=== PATIENT | female | born 1945 | race Caucasian/White ===

== ENCOUNTER → 2020-05-14 08:37 | Outpatient (CLI) | payer BC, SELFPAY ==
[2020-05-14 09:25] LABS: Alanine Aminotransferase 19 IU/L (<35); Albumin 4.3 g/dL (3.5-5.0); Albumin Globulin Ratio 1.5 (1.0-2.8); Alkaline Phosphatase 57 U/L (38-126); Aspartate Aminotransferase 21 IU/L (14-36); BUN Creatinine Ratio 20.5 (6-22); Blood Urea Nitrogen 18 mg/dL (7-17); Calcium 9.9 mg/dL (8.4-10.2); Carbon Dioxide 32 mmol/L (22-32); Chloride 94 mmol/L (98-107); Cholesterol 150 mg/dL (140-199); Estimated Glomerular Filt Rate > 60.0 mL/min (>60); Globulin 2.8 g/dL (1.7-4.1); Glucose 115 mg/dL (80-110); HDL Cholesterol 56 mg/dL (40-60); HEMOLYSIS < 15 (0-50); LDL Cholesterol Calculated 52 mg/dL (<100); Sodium 133 mmol/L (137-145); Total Protein 7.1 g/dL (6.3-8.2); Triglycerides 209 mg/dL (35-150)
== END ==
PROVIDERS: PCP Registered Nurse; Referring Provider Registered Nurse; Visit Provider Registered Nurse
DX: E78.5 Hyperlipidemia, unspecified (principal); I10 Essential (primary) hypertension
CPT/HCPCS: 36415; 80053; 80061

== ENCOUNTER → 2020-10-07 16:38 | Outpatient (CLI) | payer BC, SELFPAY ==
[2020-10-07] MEDS: COVID-19 VACC #1, MRNA(MOD) 100 MCG/0.5 ML VIAL IM (16:44)
== END ==
PROVIDERS: PCP Registered Nurse; Visit Provider Internal Medicine
DX: Z23 Encounter for immunization (principal)
CPT/HCPCS: 0011A; 91301

== ENCOUNTER → 2020-11-04 09:47 | Outpatient (CLI) | payer BC, SELFPAY ==
[2020-11-04 12:03] LABS: Alanine Aminotransferase 20 IU/L (<35); Albumin 4.1 g/dL (3.5-5.0); Albumin Globulin Ratio 1.6 (1.0-2.8); Alkaline Phosphatase 62 U/L (38-126); Aspartate Aminotransferase 21 IU/L (14-36); Bilirubin Total 0.7 mg/dL (0.2-1.3); Blood Urea Nitrogen 17 mg/dL (7-17); Calcium 9.6 mg/dL (8.4-10.2); Carbon Dioxide 29 mmol/L (22-32); Chloride 94 mmol/L (98-107); Cholesterol 132 mg/dL (140-199); Estimated Glomerular Filt Rate > 60.0 mL/min (>60); Globulin 2.5 g/dL (1.7-4.1); Glucose 123 mg/dL (80-110); HDL Cholesterol 50 mg/dL (40-60); HEMOLYSIS < 15 (0-50); LDL Cholesterol Calculated 56 mg/dL (<100); Potassium 4.3 mmol/L (3.4-5.1); Sodium 130 mmol/L (137-145); Total Protein 6.6 g/dL (6.3-8.2); Triglycerides 128 mg/dL (35-150)
== END ==
PROVIDERS: PCP Registered Nurse; Referring Provider Registered Nurse; Visit Provider Registered Nurse
DX: E78.5 Hyperlipidemia, unspecified (principal); I10 Essential (primary) hypertension
CPT/HCPCS: 36415; 80053; 80061

== ENCOUNTER → 2020-11-04 12:12 | Outpatient (CLI) | payer BC, SELFPAY ==
[2020-11-04] MEDS: COVID-19 VACC #2, MRNA(MOD) 100 MCG/0.5 ML VIAL IM (12:21)
== END ==
PROVIDERS: PCP Registered Nurse; Visit Provider Internal Medicine
DX: Z23 Encounter for immunization (principal)
CPT/HCPCS: 0012A; 91301

== ENCOUNTER → 2020-12-20 07:56 | Outpatient (CLI) | payer BC, SELFPAY ==
--- NOTE | 2020-12-20 07:56 | DI.MG.S_ITS ---
BILATERAL DIGITAL SCREENING MAMMOGRAM 3D/2D WITH CAD: 12/20/2020 CLINICAL: Routine screening. Comparison is made to exams dated: 02/28/2018 mammogram and 02/11/2018 mammogram - outside location. There are scattered fibroglandular elements in both breasts. Current study was also evaluated with a Computer Aided Detection (CAD) system. No significant masses, calcifications, or other findings are seen in either breast. There has been no significant interval change. IMPRESSION: NEGATIVE There is no mammographic evidence of malignancy. A 1 year screening mammogram is recommended. This exam was interpreted at Station ID: [id number]. NOTE: For mammograms, a report in lay terms will be sent to the patient. Approximately 15% of breast malignancies will not be visualized mammographically. In the management of a palpable breast mass, a negative mammogram must not discourage biopsy of a clinically suspicious lesion. Electronically Signed By: Nas noble/tenzin:12/20/2020 09:41:02 letter sent: Normal Exam ACR BI-RADS Category 1: Negative [id number]
== END ==
PROVIDERS: PCP Registered Nurse; Referring Provider Registered Nurse; Visit Provider Registered Nurse
DX: Z12.31 Encounter for screening mammogram for malignant neoplasm of breast (principal)
CPT/HCPCS: 77063; 77067

== ENCOUNTER → 2021-12-05 09:18 | Outpatient (CLI) | payer BC, SELFPAY ==
[2021-12-05 10:47] LABS: Add Manual Diff / Slide Review NO; Basophils Absolute Auto 100 /uL (0-100); Basophils Percent Auto 0.9 % (0-2); Eosinophils Absolute Auto 100 /uL (0-450); Eosinophils Percent Auto 1.5 % (2-4); Hematocrit 43.2 % (36-46); Hemoglobin 15.2 g/dL (12.0-16.0); Lymphocytes Absolute Auto 1000 /uL (1100-4500); Lymphocytes Percent Auto 16.7 % (25-40); Mean Corpuscular HGB Conc 35.2 % (30-36); Mean Corpuscular Hemoglobin 31.5 PG (26-34); Mean Corpuscular Volume 89.4 fL (80-100); Monocytes Absolute Auto 600 /uL (0-900); Monocytes Percent Auto 9.8 % (3-14); Neutrophils Absolute Auto 4200 /uL (1500-7000); Neutrophils Percent Auto 71.1 % (50-75); Platelet Count 303 X10^3/uL (150-400); Red Blood Cell Count 4.83 X10^6/uL (4.0-5.2); Red Cell Distribution Width 13.6 % (11.6-14.8); White Blood Cell Count 5.9 X10^3/uL (4.5-11.0)
[2021-12-05 11:08] LABS: Alanine Aminotransferase 21 IU/L (<35); Albumin 4.5 g/dL (3.5-5.0); Albumin Globulin Ratio 1.4 (1.0-2.8); Alkaline Phosphatase 72 U/L (38-126); Aspartate Aminotransferase 26 IU/L (14-36); BUN Creatinine Ratio 18.9 (6-22); Bilirubin Total 0.8 mg/dL (0.2-1.3); Blood Urea Nitrogen 17 mg/dL (7-17); Calcium 9.5 mg/dL (8.4-10.2); Carbon Dioxide 28 mmol/L (22-32); Chloride 95 mmol/L (98-107); Cholesterol 161 mg/dL (140-199); Estimated Glomerular Filt Rate > 60.0 mL/min (>60); Globulin 3.2 g/dL (1.7-4.1); Glucose 142 mg/dL (80-110); HDL Cholesterol 55 mg/dL (40-60); HEMOLYSIS < 15 (0-50); LDL Cholesterol Calculated 71 mg/dL (<100); Potassium 3.8 mmol/L (3.4-5.1); Sodium 132 mmol/L (137-145); Total Protein 7.7 g/dL (6.3-8.2); Triglycerides 174 mg/dL (35-150)
[2021-12-05 12:54] LABS: Creatinine Urine Random 194.5 mg/dL
[2021-12-05 12:57] LABS: Microalbumi Creatinin Ratio Ur 33.9 ug/mg CR (<30); Microalbumin Urine Random 6.6 mg/dL (0-1.6)
== END ==
PROVIDERS: PCP Family Medicine; Referring Provider Family Medicine; Visit Provider Family Medicine
DX: E78.5 Hyperlipidemia, unspecified (principal); I10 Essential (primary) hypertension
CPT/HCPCS: 36415; 80053; 80061; 82043; 82570; 85025

== ENCOUNTER → 2023-01-30 09:02 | Outpatient (CLI) | payer BC, SELFPAY ==
[2023-01-30 10:30] LABS: Alanine Aminotransferase 28 IU/L (<35); Albumin 4.4 g/dL (3.5-5.0); Albumin Globulin Ratio 1.5 (1.0-2.8); Alkaline Phosphatase 85 U/L (38-126); Aspartate Aminotransferase 24 IU/L (14-36); BUN Creatinine Ratio 19.2 (6-22); Bilirubin Total 0.9 mg/dL (0.2-1.3); Blood Urea Nitrogen 14 mg/dL (7-17); Calcium 9.8 mg/dL (8.4-10.2); Carbon Dioxide 31 mmol/L (22-32); Chloride 92 mmol/L (98-107); Cholesterol 169 mg/dL (140-199); Estimated Glomerular Filt Rate > 60 mL/min (>60); Glucose 124 mg/dL (80-110); HDL Cholesterol 62 mg/dL (40-60); HEMOLYSIS < 15 (0-50); LDL Cholesterol Calculated 65 mg/dL (<100); Potassium 4.3 mmol/L (3.4-5.1); Sodium 132 mmol/L (137-145); Total Protein 7.4 g/dL (6.3-8.2); Triglycerides 208 mg/dL (35-150)
[2023-01-30 12:26] LABS: Creatinine Urine Random 170.5 mg/dL
[2023-01-30 12:29] LABS: Microalbumi Creatinin Ratio Ur 55.7 ug/mg CR (<30); Microalbumin Urine Random 9.5 mg/dL (0-1.6)
[2023-01-31 02:38] LABS: Labcorp Hemoglobin (Hb) A1c 6.1 % (4.8-5.6)
== END ==
PROVIDERS: PCP Family Medicine; Referring Provider Family Medicine; Visit Provider Family Medicine
DX: I10 Essential (primary) hypertension (principal); R73.01 Impaired fasting glucose
CPT/HCPCS: 36415; 80053; 80061; 82043; 82570; 83036

== ENCOUNTER → 2023-05-30 09:27 | Outpatient (CLI) | payer BC, SELFPAY ==
[2023-05-30 11:32] LABS: Blood Urea Nitrogen 24 mg/dL (7-17); Calcium 9.9 mg/dL (8.4-10.2); Carbon Dioxide 30 mmol/L (22-32); Chloride 95 mmol/L (98-107); Estimated Glomerular Filt Rate 58 mL/min (>60); Glucose 99 mg/dL (80-110); HEMOLYSIS < 15 (0-50); Sodium 136 mmol/L (137-145)
== END ==
PROVIDERS: PCP Family Medicine; Referring Provider Family Medicine; Visit Provider Family Medicine
DX: I10 Essential (primary) hypertension (principal); R73.01 Impaired fasting glucose
CPT/HCPCS: 36415; 80048

== ENCOUNTER → 2024-03-04 13:51 | Outpatient (CLI) | payer BC, SELFPAY ==
--- NOTE | 2024-03-04 15:08 | DI.RAD.S_ITS ---
PROCEDURE: XR CHEST 2V INDICATIONS: SOB x 2 mos getting worse TECHNIQUE: 2 views of the chest were acquired. COMPARISON: None. FINDINGS: Surgical changes and devices: None. Lungs and pleura: Lungs are clear. No pleural effusions or pneumothorax. Mediastinum: Mediastinal contours are normal. Heart size is normal. Bones and chest wall: No suspicious bony abnormalities. Soft tissues appear unremarkable. IMPRESSION: No acute pulmonary process. Dictated by: Jodie Jim M.D. on 03/04/2024 at 16:08 Approved by: Jodie Jim M.D. on 03/04/2024 at 16:08
[2024-03-04 15:23] LABS: Add Manual Diff / Slide Review NO; Basophils Absolute Auto 0 /uL (0-100); Basophils Percent Auto 0.4 % (0-2); Eosinophils Absolute Auto 100 /uL (0-450); Eosinophils Percent Auto 1.6 % (2-4); Lymphocytes Absolute Auto 600 /uL (1100-4500); Lymphocytes Percent Auto 8.6 % (25-40); Mean Corpuscular HGB Conc 34.9 % (30-36); Mean Corpuscular Hemoglobin 30.4 PG (26-34); Mean Corpuscular Volume 87.1 fL (80-100); Monocytes Absolute Auto 900 /uL (0-900); Monocytes Percent Auto 13.1 % (3-14); Neutrophils Absolute Auto 5100 /uL (1500-7000); Neutrophils Percent Auto 76.3 % (50-75); Platelet Count 392 X10^3/uL (150-400); Red Blood Cell Count 4.94 X10^6/uL (4.0-5.2); Red Cell Distribution Width 14.6 % (11.6-14.8); White Blood Cell Count 6.7 X10^3/uL (4.5-11.0)
[2024-03-04 15:35] LABS: D Dimer 270 ng/ml (<500)
[2024-03-04 15:42] LABS: Alanine Aminotransferase 18 IU/L (<35); Albumin 4.4 g/dL (3.5-5.0); Albumin Globulin Ratio 1.3 (1.0-2.8); Alkaline Phosphatase 70 U/L (38-126); Aspartate Aminotransferase 22 IU/L (14-36); Bilirubin Total 0.8 mg/dL (0.2-1.3); Blood Urea Nitrogen 19 mg/dL (7-17); Calcium 9.8 mg/dL (8.4-10.2); Carbon Dioxide 36 mmol/L (22-32); Chloride 78 mmol/L (98-107); Estimated Glomerular Filt Rate > 60 mL/min (>60); Globulin 3.3 g/dL (1.7-4.1); Glucose 121 mg/dL (80-110); HEMOLYSIS < 15 (0-50); Potassium 4.6 mmol/L (3.4-5.1); Sodium 124 mmol/L (137-145); Total Protein 7.7 g/dL (6.3-8.2)
[2024-03-04 16:11] LABS: TSH w/ Reflex to FT4 1.14 uIU/mL (0.47-4.68)
[2024-03-05 10:50] LABS: NT-proBNP (BNP-Adult 18+) 2770 pg/mL (<450)
== END ==
PROVIDERS: PCP Family Medicine; Referring Provider Physician Assistant; Visit Provider Physician Assistant
DX: R06.02 Shortness of breath (principal)
CPT/HCPCS: 36415; 71046; 80053; 83880; 84443; 85025; 85379

== ENCOUNTER → 2024-03-11 07:08 | Outpatient (CLI) | payer BC, SELFPAY ==
--- NOTE | 2024-03-11 07:12 | DI.US.S_ITS ---
PROCEDURE: US ABDOMEN LIMITED INDICATIONS: umbilical mass x 16 yrs, getting bigger TECHNIQUE: Real-time focused scanning was performed of the abdomen, with image documentation. COMPARISON: None. FINDINGS: Partially reducible supraumbilical hernia containing fat with wall defect measuring 3.1 centimeters. IMPRESSION: Partial reducible fat containing supraumbilical hernia. Dictated by: Pola Lopez M.D. on 03/11/2024 at 8:36 Approved by: Pola Lopez M.D. on 03/11/2024 at 8:37
--- NOTE | 2024-03-11 07:12 | DI.CT.S_ITS ---
PROCEDURE: CT LUNG LOW DOSE SCREENING INDICATIONS: 60 yr smoking hx, SOB TECHNIQUE: Noncontrast 2.0-2.5 mm thick sections acquired from the pulmonary apices to the posterior costophrenic angles. 7 mm thick axial MIP, and 5 mm coronal and sagittal reformats were then acquired. For radiation dose reduction, the following was used: automated exposure control, adjustment of mA and/or kV according to patient size. COMPARISON: None. FINDINGS: Image quality: Diagnostic. Lower Neck: No enlarged lymph nodes. Thyroid: No thyroid nodules which require sonographic follow up, per consensus guidelines. Axillae: No enlarged lymph nodes. Chest Wall: Unremarkable. Bones: Unremarkable. Lungs and Pleura: No pneumothorax or pleural effusions. No consolidation or suspicious nodules. Moderate centrilobular emphysema. Heart: Heart size is normal. Advanced coronary artery calcifications. No pericardial effusion. Thoracic Vessels: 4.6 cm ascending aortic aneurysm. Mediastinum and Riya: No enlarged lymph nodes. Esophagus: No wall thickening. No hiatal hernia. Upper Abdomen: Ventral hernia containing colon, incompletely imaged. The actual abdominal wall defect is not imaged. IMPRESSION: Moderate centrilobular emphysema. No pulmonary nodules. Advanced coronary atherosclerotic disease. 4.5 cm ascending aortic aneurysm. No suspicious pulmonary nodules. LUNG-RADS 1; continued annual screening, if eligible. Clinically Significant Non-pulmonary Findings: 4.5 cm ascending aortic aneurysm, advanced coronary artery calcifications. Dictated by: Chico Lizarraga M.D. on 03/11/2024 at 20:34 Approved by: Chico Lizarraga M.D. on 03/11/2024 at 20:40
[2024-03-11 09:10] LABS: BUN Creatinine Ratio 24.5 (6-22); Blood Urea Nitrogen 27 mg/dL (7-17); Calcium 10.1 mg/dL (8.4-10.2); Carbon Dioxide 35 mmol/L (22-32); Chloride 93 mmol/L (98-107); Estimated Glomerular Filt Rate 52 mL/min (>60); Glucose 122 mg/dL (80-110); HEMOLYSIS < 15 (0-50); Potassium 4.9 mmol/L (3.4-5.1); Sodium 137 mmol/L (137-145)
== END ==
PROVIDERS: PCP Family Medicine; Referring Provider Physician Assistant; Visit Provider Physician Assistant
DX: I71.21 Aneurysm of the ascending aorta, without rupture (principal); J43.2 Centrilobular emphysema; I25.10 Atherosclerotic heart disease of native coronary artery without angina pectoris; R06.02 Shortness of breath; Z12.2 Encounter for screening for malignant neoplasm of respiratory organs; R19.00 Intra-abdominal and pelvic swelling, mass and lump, unspecified site; E87.1 Hypo-osmolality and hyponatremia; Z87.891 Personal history of nicotine dependence
CPT/HCPCS: 36415; 71271; 76705; 80048

== ENCOUNTER → 2024-03-18 15:50 | Outpatient (CLI) | payer BC, SELFPAY | PROVIDERS: PCP Family Medicine; Referring Provider Family Medicine; Visit Provider Family Medicine | DX: J43.8 Other emphysema (principal); Z87.891 Personal history of nicotine dependence; R94.2 Abnormal results of pulmonary function studies | CPT/HCPCS: 94060 ==

== ENCOUNTER → 2024-03-26 07:55 | Outpatient (CLI) | payer BC, SELFPAY ==
--- NOTE | 2024-03-26 09:26 | DI.CT.S_ITS ---
PROCEDURE: CT ABDOMEN PELVIS W CON INDICATIONS: possible hernia TECHNIQUE: After the administration of intravenous contrast, axial sections acquired from the lung bases to the pubic symphysis. Coronal and sagittal reformats were performed. For radiation dose reduction, the following was used: automated exposure control, adjustment of mA and/or kV according to patient size. COMPARISON: None. FINDINGS: Image quality: Diagnostic. Lower Chest: No significant findings. ABDOMEN: Liver: No solid mass. Gallbladder: Gallbladder is unremarkable. Biliary ducts: No biliary dilation. Pancreas: No ductal dilation. Spleen: Size is within normal limits. Adrenal Glands: Right adrenal is normal. Nodule in the left adrenal with low Hounsfield units consistent with adenoma.. Kidneys and Ureters: No hydronephrosis. No solid mass. Densities too small to characterize are present bilaterally but statistically would represent cysts. Nonobstructing calculus in the right renal collecting system. Ureters are unremarkable.. Stomach and Bowel: Normal colonic caliber, without significant wall thickening. Diverticular seen in the sigmoid without evidence of diverticulitis. The transverse colon is present. No bowel obstruction. No evidence of incarceration. Peritoneum: No free air. Ventral Wall: There is moderate size ventral hernia with a 5 cm defect in the abdominal wall. Small fat filled umbilical hernia is noted. Abdominal Nodes: No retroperitoneal or mesenteric adenopathy by size criteria. Vessels: Extensive calcification in the abdominal aorta. The infrarenal aorta is ectatic measuring 3 cm in diameter.. PELVIS: Pelvic Organs: Uterus is absent, likely from hysterectomy. Bladder: No bladder wall thickening, accounting for underdistention. Pelvic Nodes: No enlarged lymph nodes. Miscellaneous: No inguinal hernias are seen. Bones: Advanced arthritic changes are present in the lumbar spine. There is anterolisthesis L4 on L5. IMPRESSION: Ventral hernia with a loop of transverse colon present. No bowel obstruction. Nonobstructing right renal calculus. Left adrenal nodule, likely adenoma. Dictated by: Greg Cabrera M.D. on 03/26/2024 at 17:37 Approved by: Greg Cabrera M.D. on 03/26/2024 at 17:55
== END ==
PROVIDERS: PCP Family Medicine; Referring Provider Surgery; Visit Provider Surgery
DX: K43.9 Ventral hernia without obstruction or gangrene (principal); K42.9 Umbilical hernia without obstruction or gangrene; N20.0 Calculus of kidney; E27.9 Disorder of adrenal gland, unspecified
CPT/HCPCS: 74177; Q9967

== ENCOUNTER → 2024-05-28 10:09 | Outpatient (CLI) | payer BC, SELFPAY ==
--- NOTE | 2024-05-28 10:10 | DI.NM.S_ITS ---
PROCEDURE: NM JAYCE PERF SPECT R&S PHARM Rest and pharmacological stress myocardial perfusion SPECT with gated imaging and ejection fraction RADIOPHARMACEUTICAL: 12.9 mCi Tc-99m tetrafosmin IV at rest and 26.3 mCi Tc-99m tetrafosmin IV at peak effect of pharmacological stress. [id number] was performed. INDICATIONS: Pararenal abdominal aortic aneurysm/abnormal ekg TECHNIQUE: Radiopharmaceutical was injected at peak stress test, and also at rest. SPECT images were obtained. SPECT myocardial perfusion images were displayed in short axis, horizontal long axis, and vertical long axis views. Gated images were reviewed using [employer] software. COMPARISON: None. CARDIAC STRESS: A pharmacologic stress test was performed under the supervision of an attending staff, using an infusion of 0.4 mg IV. Hemodynamic data: There is normal blood pressure and heart rate response to pharmacologic stress. Symptoms: The patient denied anginal chest pain. EKG: No diagnostic changes of ischemia; no ectopy. FINDINGS: Raw data: There is good myocardial uptake of radiotracer. No significant motion artifacts. Ucnq-xm-ykioy ratio is 0.3 (normal is less than 0.38 for tetrafosmin tracer). Left ventricle function: Gated images demonstrate normal left ventricular wall thickening. No segmental wall motion abnormalities. No transient ischemic dilation; TID is 0.95 (normal less than 1.3). Left ventricle resting end diastolic volume is 112 mL. Left ventricle stress ejection fraction is >75%; normal range is above 45%. Myocardial perfusion: There is a small size, mild intensity fixed distal anteroseptal wall defect. No reversible perfusion defects. IMPRESSION: Low risk study for ischemia as there are no reversible perfusion defects. The small size, mild intensity fixed distal anteroseptal wall defect occurs in the setting of breast attenuation, lack of prone images and normal wall motion. This is likely most consistent with attenuation artifact however small subendocardial scar cannot be ruled out. Normal LV size with hyperdynamic function. Dictated by: Monse Dinero D.O. on 05/28/2024 at 16:37 Approved by: Monse Dinero D.O. on 05/28/2024 at 16:40
== END ==
PROVIDERS: PCP Family Medicine; Referring Provider Internal Medicine Cardiovascular Disease; Visit Provider Internal Medicine Cardiovascular Disease
DX: I71.41 Pararenal abdominal aortic aneurysm, without rupture (principal); R94.31 Abnormal electrocardiogram [ECG] [EKG]
CPT/HCPCS: 78452; 93017; A9502; J2785

== ENCOUNTER 2024-06-24 08:11 | Emergency (ER) | payer BC, SELFPAY ==
[2024-06-24 08:20] VITALS: BP 173/78; PULSE 68; RESP 16; TEMP 36.2; O2SAT 98; BMI 34.0
--- NOTE | 2024-06-24 08:21 | ED.BACK ---
HPI - Back Pain/Injury General Chief Complaint: Urogenital-Female Stated Complaint: Pain in lower right back to front Time Seen by Provider: 06/24/24 08:21 History of Present Illness HPI Narrative: Patient is a 79-year-old female with a history of stable ascending aortic aneurysm without rupture, COPD not requiring supplemental oxygen at baseline, CHF, hyperlipidemia, hypertension presents to the emergency department for right-sided flank pain, has been ongoing and persistent for approximately 1 week, states that movement does make it worse, denies any bowel or urinary symptoms. States that she is due for ventral hernia repair in July 11 just got cardiac clearance. Denies any issues with this. She denies any numbness weakness tingling down bilateral lower extremities, is able to stand bear weight at her baseline with a walker. Denies any saddle paresthesias denies any bowel or urinary incontinence or retention. Related Data Previous Rx's Medication Instructions Recorded chlorthalidone 25 mg tablet 25 mg PO DAILY blood pressure #90 09/17/23 tabs losartan 100 mg tablet 100 mg PO DAILY blood pressure #90 09/17/23 tabs amlodipine 10 mg tablet 10 mg PO DAILY #90 tabs 03/21/24 atenolol 100 mg tablet 100 mg PO DAILY #90 tabs 03/21/24 atorvastatin 10 mg tablet 10 mg PO DAILY #90 tabs 03/21/24 fluticasone 250 mcg-salmeterol 50 1 inh inhalation BID #60 ea 06/10/24 mcg/dose blistr powdr for inhalation (Advair Diskus) baclofen 10 mg tablet 10 mg PO BEDTIME 7 days #7 tabs 06/24/24 naproxen 500 mg tablet (Naprosyn) 500 mg PO BID PRN pain 7 days #14 06/24/24 tabs Allergies Allergy/AdvReac Type Severity Reaction Status Date / Time lisinopril Allergy Verified 04/02/24 15:03 Review of Systems Review of Systems Narrative: General: Denies fever, chills, weight loss HEENT: Denies headache, eye drainage, eye irritation, head trauma, sore throat, voice change Cardiovascular: Denies any chest pain, palpitations, shortness of breath, tachycardia Respiratory: Denies any shortness of breath, cough, wheeze, stridor GI/: Positive right-sided flank pain, Denies any abdominal pain, nausea, vomiting, diarrhea, bright red blood per rectum, melanotic stools, urinary frequency, urinary retention, dysuria, hematuria MSK: Denies any joint pain, muscle pains, swelling Skin: Denies any rashes, lesions, discoloration Neuro: Denies any headache, lightheadedness, dizziness, fainting, weakness Psych: Denies SI/HI Patient History Medical History (Updated 06/24/24 @ 10:19 by Dario Lopez DO) Ventral hernia Emphysema lung Aortic aneurysm Tobacco dependence IFG (impaired fasting glucose) Uterine cancer (~2003) Social History marital status: unknown details: 12/05/2021 Employed by [employer] works with [employer] household members: none lives independently: Yes occupational status: employed Smoking Status: Former smoker (Quit January 2023. 58 years, 1ppd) quit status: quit date established (quit January 2023) alcohol intake: current substance use type: does not use Smoking Status: Former smoker (Quit January 2023. 58 years, 1ppd) Exam Narrative Exam Narrative: General: Cooperative, comfortable, well-developed, not in acute distress HEENT: Normocephalic, atraumatic, PERRLA, normal sclera, eyelids normal, Neck: Active full range of motion, atraumatic Chest: Normal to inspection, negative crepitus, no overlying erythema ecchymosis Respiratory: Normal respiratory effort, not in acute respiratory distress, clear to auscultation bilaterally negative cough, wheeze, tachypnea, rhonchi, rales Cardiology: Regular rate rhythm negative gallop, murmur, rubs GI/: Normal to inspection, soft, nonrigid, no tenderness to palpation, exam deferred MSK: Full range of active range of motion of all 4 extremities, atraumatic, no tenderness to palpation of the midline lumbar spine no overlying erythema ecchymosis, there is some tenderness to palpation of the muscles on the right side. Skin: No rashes lesions noted Neuro: Alert awake oriented x3, moves all 4 extremities spontaneously, cranial nerves intact, able to answer all questions appropriately follows commands appropriately Psych: Cooperative, negative suicidal or homicidal ideations Initial Vital Signs Initial Vital Signs: Vital Signs Temperature 97.2 F L 06/24/24 08:20 Pulse Rate 68 06/24/24 08:20 Respiratory Rate 16 06/24/24 08:20 Blood Pressure 173/78 H 06/24/24 08:20 Pulse Oximetry 98 06/24/24 08:20 Oxygen Delivery Method Room Air 06/24/24 08:20 Course Orders Ordered: ED Orders 06/24/24 08:27 CT abdomen pelvis wo con Stat 06/24/24 08:46 BMP [Basic Metabolic Panel] Stat Complete Blood Count AUTO DIFF Stat 06/24/24 10:07 Urine Microscopic Stat Discontinued Medications Ketorolac Tromethamine (Ketorolac 30 Mg/Ml Vial) 30 mg IV NOW ONE Stop: 06/24/24 08:28 Last Admin: 06/24/24 08:51 Dose: 30 mg Documented By: [facility] Vital Signs Vital signs: Vital Signs - 8 hr 06/24/24 08:20 06/24/24 09:30 Temperature 97.2 F L Pulse Rate 68 51 L Respiratory Rate 16 Blood Pressure 173/78 H 134/63 Pulse Oximetry 98 95 Oxygen Delivery Method Room Air Room Air MDM - Back Pain/Injury Differential Diagnosis Differential diagnosis: Likely strain of lumbar region, renal colic, pyelonephritis and other (Urinary tract infection, urolithiasis) Lab Data 06/24/24 08:46 06/24/24 08:46 Labs: Lab Results 06/24/24 Range/Units 08:46 WBC 7.4 (4.5-11.0) X10^3/uL RBC 4.62 (4.0-5.2) X10^6/uL Hgb 14.3 (12.0-16.0) g/dL Hct 41.7 (36-46) % MCV 90.3 (80-100) fL MCH 31.0 (26-34) PG MCHC 34.3 (30-36) % RDW 16.5 H (11.6-14.8) % Plt Count 323 (150-400) X10^3/uL Neut % (Auto) 74.1 (50-75) % Lymph % (Auto) 12.4 L (25-40) % [place] % (Auto) 10.7 (3-14) % Eos % (Auto) 1.7 L (2-4) % Baso % (Auto) 1.1 (0-2) % Neut # (Auto) 5500 (8246-6445) /uL Lymph # (Auto) 900 L (0921-4781) /uL [place] # (Auto) 800 (0-900) /uL Eos # (Auto) 100 (0-450) /uL Baso # (Auto) 100 (0-100) /uL Sodium 135 L (137-145) mmol/L Potassium 4.1 (3.4-5.1) mmol/L Chloride 99 (98-107) mmol/L Carbon Dioxide 27 (22-32) mmol/L BUN 24 H (7-17) mg/dL Creatinine 1.14 H (0.52-1.04) mg/dL Estimated GFR 49 L (>60) mL/min BUN/Creatinine Ratio 21.1 (6-22) Glucose 123 H (80-110) mg/dL Calcium 9.7 (8.4-10.2) mg/dL Urine Dip Bedside Urine Glucose Negative Bedside Urine Bilirubin - Negative Bedside Urine Ketone - Negative Urine Specific [place] 1.020 Bedside Urine Occult Blood - Negative Bedside Urine pH 6.0 Bedside Urine Protein +/- 15 Bedside Urine Urobilinogen - Negative Bedside Urine Nitrite - Negative Bedside Urine Leukocytes +/- [address] scan - abdomen/pelvis: Radiologist's Impression: [address] [address] [address] Scan Report Signed Patient: Natasha Chen MR#: [id number] : 1945 Acct:[id number] Age/Sex: 79 / F Date of Service: 06/24/24 Loc: ED Accession Number: [id number] Procedure: CT abdomen pelvis wo con Ordering Provider: Dario Lopez D.O. PROCEDURE: CT ABDOMEN PELVIS WO CON INDICATIONS: right sided flank pain TECHNIQUE: Axial sections were acquired from the lung bases to the pubic symphysis. Coronal and sagittal reformats were performed. For radiation dose reduction, the following was used: automated exposure control, adjustment of mA and/or kV according to patient size. COMPARISON: [facility], CT, CT ABDOMEN PELVIS W CON, 03/26/2024, 9:28. FINDINGS: Image quality: Diagnostic. Lower Chest: No significant findings. URINARY: Right Kidney: No stones or hydronephrosis. Probable right renal vascular Right Ureter: No hydroureter. Left Kidney: No stones or hydronephrosis. Simple cysts. Left Ureter: No hydroureter. Bladder: Normal wall thickness. No stones. ABDOMEN: Liver: No contour-deforming solid mass. Steatosis Gallbladder: No radiopaque gallstones or wall thickening. Biliary ducts: No biliary dilation. Pancreas: No ductal dilation. Spleen: Size is within normal limits. Adrenal Glands: No adrenal nodules. Stomach and Bowel: Normal colonic caliber, without significant wall thickening. Diverticula without inflammatory change. No right lower quadrant inflammatory change. Visualized portions the appendix are Peritoneum: No abnormal intraperitoneal fluid. No free air. Ventral Wall: Bowel containing ventral hernia incarceration or strangulation no obstruction. Abdominal Nodes: No enlarged retroperitoneal or mesenteric lymph nodes. Vessels: Aorta and inferior vena cava are normal in size. PELVIS: Pelvic Organs: Unremarkable. Pelvic Nodes: Unremarkable. Miscellaneous: No inguinal hernias are seen. Bones: Multilevel degenerative changes. IMPRESSION: No obstructing stones or hydronephrosis. Diverticulosis. MDM Narrative Medical decision making narrative: Patient presenting for right-sided flank pain ongoing persistent for past week, no red flags for cauda equina. CT scan without any signs of nephrolithiasis, urolithiasis. Lab work unremarkable, no leukocytosis, creatinine normal, urinalysis without any signs infection. Lab work imaging physical exam more likely myofascial/lumbar strain, patient will be sent home analgesics muscle relaxers instructed to follow up with primary care in outpatient setting. She will be safe for discharge home with outpatient follow up Discharge Plan Departure Patient Disposition: Home Clinical Impression: Acute lumbar myofascial strain Activity Restrictions/Additional Instructions: Please follow up with primary care Please read the discharge instructions sheet carefully and bring all papers to all doctor follow-up visits, as it may contain information that your doctor may want to see. Disease processes change and evolve, if your symptoms worsen or if you develop any new symptoms that are concerning to you please return for evaluation. Your evaluation today does not show any evidence of any life-threatening/serious illnesses requiring admission to the hospital or surgery. Please follow-up with your doctor for re-evaluation in approximately 1 day. Seek immediate medical attention for any worrisome symptoms. Prescriptions: New naproxen [Naprosyn] 500 mg tablet 500 mg PO BID PRN (Reason: pain) 7 Days Qty: 14 0RF baclofen 10 mg tablet 10 mg PO BEDTIME 7 Days Qty: 7 0RF No Action losartan 100 mg tablet 100 mg PO DAILY Qty: 90 3RF chlorthalidone 25 mg tablet 25 mg PO DAILY Qty: 90 3RF Hold Instructions: Home Medication placed on hold at Doctor's office amlodipine 10 mg tablet 10 mg PO DAILY Qty: 90 3RF atenolol 100 mg tablet 100 mg PO DAILY Qty: 90 3RF atorvastatin 10 mg tablet 10 mg PO DAILY Qty: 90 3RF fluticasone propion-salmeterol [Advair Diskus] 250-50 mcg/dose blister with device 1 inh inhalation BID Qty: 60 3RF Referrals: Kishore Ding DO [Primary Care Provider] - Stand Alone Forms: Patient Portal/API
--- NOTE | 2024-06-24 08:27 | DI.CT.S_ITS ---
PROCEDURE: CT ABDOMEN PELVIS WO CON INDICATIONS: right sided flank pain TECHNIQUE: Axial sections were acquired from the lung bases to the pubic symphysis. Coronal and sagittal reformats were performed. For radiation dose reduction, the following was used: automated exposure control, adjustment of mA and/or kV according to patient size. COMPARISON: [facility], CT, CT ABDOMEN PELVIS W CON, 03/26/2024, 9:28. FINDINGS: Image quality: Diagnostic. Lower Chest: No significant findings. URINARY: Right Kidney: No stones or hydronephrosis. Probable right renal vascular Right Ureter: No hydroureter. Left Kidney: No stones or hydronephrosis. Simple cysts. Left Ureter: No hydroureter. Bladder: Normal wall thickness. No stones. ABDOMEN: Liver: No contour-deforming solid mass. Steatosis Gallbladder: No radiopaque gallstones or wall thickening. Biliary ducts: No biliary dilation. Pancreas: No ductal dilation. Spleen: Size is within normal limits. Adrenal Glands: No adrenal nodules. Stomach and Bowel: Normal colonic caliber, without significant wall thickening. Diverticula without inflammatory change. No right lower quadrant inflammatory change. Visualized portions the appendix are Peritoneum: No abnormal intraperitoneal fluid. No free air. Ventral Wall: Bowel containing ventral hernia incarceration or strangulation no obstruction. Abdominal Nodes: No enlarged retroperitoneal or mesenteric lymph nodes. Vessels: Aorta and inferior vena cava are normal in size. PELVIS: Pelvic Organs: Unremarkable. Pelvic Nodes: Unremarkable. Miscellaneous: No inguinal hernias are seen. Bones: Multilevel degenerative changes. IMPRESSION: No obstructing stones or hydronephrosis. Diverticulosis. Dictated by: Jodie Jim M.D. on 06/24/2024 at 8:53 Approved by: Jodie Jim M.D. on 06/24/2024 at 9:01
[2024-06-24] MEDS: KETOROLAC 30 MG/ML VIAL IV (08:51)
[2024-06-24 08:54] LABS: Add Manual Diff / Slide Review NO; Basophils Absolute Auto 100 /uL (0-100); Basophils Percent Auto 1.1 % (0-2); Eosinophils Absolute Auto 100 /uL (0-450); Eosinophils Percent Auto 1.7 % (2-4); Hematocrit 41.7 % (36-46); Hemoglobin 14.3 g/dL (12.0-16.0); Lymphocytes Absolute Auto 900 /uL (1100-4500); Lymphocytes Percent Auto 12.4 % (25-40); Mean Corpuscular HGB Conc 34.3 % (30-36); Mean Corpuscular Volume 90.3 fL (80-100); Monocytes Absolute Auto 800 /uL (0-900); Monocytes Percent Auto 10.7 % (3-14); Neutrophils Absolute Auto 5500 /uL (1500-7000); Neutrophils Percent Auto 74.1 % (50-75); Platelet Count 323 X10^3/uL (150-400); Red Blood Cell Count 4.62 X10^6/uL (4.0-5.2); Red Cell Distribution Width 16.5 % (11.6-14.8); White Blood Cell Count 7.4 X10^3/uL (4.5-11.0)
[2024-06-24 09:06] LABS: BUN Creatinine Ratio 21.1 (6-22); Blood Urea Nitrogen 24 mg/dL (7-17); Calcium 9.7 mg/dL (8.4-10.2); Carbon Dioxide 27 mmol/L (22-32); Chloride 99 mmol/L (98-107); Estimated Glomerular Filt Rate 49 mL/min (>60); Glucose 123 mg/dL (80-110); HEMOLYSIS < 15 (0-50); Potassium 4.1 mmol/L (3.4-5.1); Sodium 135 mmol/L (137-145)
[2024-06-24 09:29] VITALS: BP 143/67; PULSE 56; O2SAT 95
[2024-06-24 09:30] VITALS: BP 134/63; PULSE 50; PULSE 51; O2SAT 95
[2024-06-24 09:54] VITALS: PULSE 58; O2SAT 99
[2024-06-24 10:01] VITALS: BP 126/61
[2024-06-24 10:23] LABS: Urine Volume 10mL (spun)
[2024-06-24 10:24] LABS: Bacteria Urine Many (>30); Culture Indicated Urine Cult Not Indicated; RBC Urine 0-1/HPF (0-5/HPF); Squamous Epithelial Cell Urine 10-30 /HPF (0-5/HPF); WBC Urine 5-10/HPF (0-5/HPF)
== END 2024-06-24 10:34 | disposition home or self-care (01) ==
PROVIDERS: Emergency Provider Student in an Organized Health Care Education/Training Program; PCP Family Medicine; Referring Provider Student in an Organized Health Care Education/Training Program
DX: S39.012A Strain of muscle, fascia and tendon of lower back, initial encounter (principal); I50.9 Heart failure, unspecified; I10 Essential (primary) hypertension; E78.5 Hyperlipidemia, unspecified
CPT/HCPCS: 36415; 74176; 80048; 81003; 81015; 85025; 96374; 99284; J1885

== ENCOUNTER 2024-07-11 10:44 | Day surgery (SDC) | payer BC, SELFPAY ==
[2024-07-08 08:16] VITALS: BMI 34.2
--- NOTE | 2024-07-10 09:48 | P.HP_ITS ---
History of Present Illness History of Present Illness Date Patient Seen: 07/11/24 Time Patient Seen: 12:45 Chief complaint: OPB Narrative: 79F with a symptomatic 10 cm ventral hernia here for elective repair. Since last seen evaluated by cardiology stress and cleared. Continues to have significant abdominal pain at hernia. [facility] Medical History Ventral hernia Emphysema lung Aortic aneurysm Tobacco dependence IFG (impaired fasting glucose) Uterine cancer (~2003) Social History marital status: unknown details: 12/05/2021 Employed by [employer] works with [employer] household members: none lives independently: Yes occupational status: employed Smoking Status: Former smoker quit status: quit date established (quit January 2023) alcohol intake: current substance use type: does not use Meds Home Medications and Allergies Home Medications Medication Instructions Recorded Confirmed Type chlorthalidone 25 mg tablet 25 mg PO DAILY blood pressure #90 09/17/23 06/25/24 Rx tabs losartan 100 mg tablet 100 mg PO DAILY blood pressure #90 09/17/23 07/11/24 Rx tabs amlodipine 10 mg tablet 10 mg PO DAILY #90 tabs 03/21/24 07/11/24 Rx atenolol 100 mg tablet 100 mg PO DAILY #90 tabs 03/21/24 07/11/24 Rx atorvastatin 10 mg tablet 10 mg PO DAILY #90 tabs 03/21/24 07/11/24 Rx fluticasone 250 mcg-salmeterol 50 1 inh inhalation BID #60 ea 06/10/24 07/11/24 Rx mcg/dose blistr powdr for inhalation (Advair Diskus) aspirin 81 mg tablet,delayed 81 mg PO DAILY 06/25/24 07/11/24 History release (Adult Aspirin Regimen) lidocaine 5 % topical patch 1 patch topical DAILY #30 ea 06/25/24 06/25/24 Rx (Lidoderm) tramadol 50 mg tablet 50 mg PO Q8H PRN pain #10 tabs 06/25/24 07/11/24 Rx Allergies Allergy/AdvReac Type Severity Reaction Status Date / Time lisinopril Allergy Verified 06/25/24 14:58 Exam Narrative Exam Narrative: Gen-Adult woman alert and oriented Abdomen-Chronically incarcerated ventral hernia Assessment & Plan Assessment and plan (1) Ventral hernia: Qualifiers: Obstruction and gangrene presence: without obstruction or gangrene Qualified Code(s): K43.9 - Ventral hernia without obstruction or gangrene Status: Acute Assessment & Plan narrative: 79F with a large ventral hernia here for elective open repair. Overview of the operation reviewed. We reviewed operative risks including but not limited to hemorrhage, infection, intestinal injury reoccurence. Questions have been answered. Following discussion she provides her informed consent to proceed. Time-Based Coding :: [TOTAL MINUTES] spent with patient and on the chart (including review of chart, obtaining history, exam, reviewing outside data, placing orders, documenting exam and treatment plan, and counseling patient) on [DATE].
[2024-07-11] VITALS (8 sets, daily range): BP systolic 136–150; BP diastolic 68–79; PULSE 62–77; RESP 12–20; TEMP 36.4–36.6; O2SAT 90–95; BMI 34.0
--- NOTE | 2024-07-11 11:26 | SUR.OPER ---
Supine on padded OR bed, head on pillow, arms secured on padded arm boards at <90 degrees abduction, legs uncrossed, safety belt at thigh, tape over blanket over lower legs.
[2024-07-11] MEDS: ACETAMINOPHEN 325 MG TABLET 975 MG PO (11:39)
[2024-07-11] MEDS: LACTATED RINGERS 1,000 ML 42 ML IV (12:49)
[2024-07-11] MEDS: CEFAZOLIN 2 GM/100 ML PREMIX 100 ML IV (13:01)
[2024-07-11] MEDS: BUPIVACAINE LIPOSOME 266 MG/20 ML VIAL INJ (13:11)
[2024-07-11] MEDS: BUPIVACAINE 0.25% (PF) VIAL 30 ML INJ (13:12)
--- NOTE | 2024-07-11 14:24 | PM.OP.1 ---
Operative Date/Time/Diagnoses Date of procedure: 07/11/24 Time of procedure: 14:24 Pre-op diagnosis: Ventral hernia 10cm Post-op diagnosis: same Procedure & Clinicians Procedure: Open ventral hernia repair 8cm Same procedure as scheduled: Yes Indications: Symptomatic bowel containing ventral hernia Surgeon: Stuart Silverio Click Yes if Unassisted: Yes Anesthesia Type: General Operative Notes Findings: Transverse colon within the hernia sac Specimen(s): none sent Estimated Blood Loss (mL): 50 Procedure in detail: Patient was brought to the operating room placed supine on the table. Bilateral lower extremity compression devices were applied. They received 2 g of Ancef prior to skin incision. Prepped and draped in sterile fashion, ioban was placed. Time-out was performed. A midline incision was made superior to the umbilicus with a knife. The subcutaneous tissue was divided to expose the midline fascia. The fascia had a 8 cm cm defect. The fascia was grasped elevated and sharply opened. Within the hernia sac was the transverse colon. Lysis of adhesions was performed and the hernia sac was excised. A Bard12 x 8cm polypropelene soft tissue mesh placed in a sublay fashion the anti-adhesive surface towards the abdomen. The mesh was anchored with interrupted Ethibond in transfascial fashion in in multiple locations such that the mesh lay under physiologic tension. The anterior sheath/ linea alba was then closed with a running 1. PDS without tension. Hemostasis was checked. The subcutaneous tissue was then reapproximated using Vicryl skin closed with running 4-0 Monocryl followed by the application of Dermabond. Patient emerged from anesthesia was extubated and transferred to recovery room in stable condition. Complications: none Post-operative Disposition: Acute Care
[2024-07-11] MEDS: OXYCODONE IR 5 MG TABLET PO (14:40)
== END 2024-07-11 16:06 | disposition home or self-care (01) ==
LOC: OR 10:44 → AC 10:45
PROVIDERS: PCP Family Medicine; Referring Provider Surgery; Visit Provider Surgery
PROC: (CPT 49594; principal; 2024-07-11 12:30)
DX: K43.6 Other and unspecified ventral hernia with obstruction, without gangrene (principal)
CPT/HCPCS: 49594; C9290; J0690; J1100; J2250; J2405; J2704; J3010

== ENCOUNTER → 2024-08-07 09:34 | Outpatient (CLI) | payer BC, SELFPAY | PROVIDERS: PCP Family Medicine; Visit Provider Student in an Organized Health Care Education/Training Program | DX: R05.1 Acute cough (principal) | CPT/HCPCS: 87070 ==

== ENCOUNTER → 2024-08-07 09:59 | Outpatient (CLI) | payer BC, SELFPAY ==
--- NOTE | 2024-08-07 10:01 | DI.RAD.S_ITS ---
PROCEDURE: XR CHEST 2V INDICATIONS: copd exacerbation vs PNA TECHNIQUE: 2 views of the chest were acquired. COMPARISON: [facility], , XR CHEST 2V, 03/04/2024, 15:06. FINDINGS: Surgical changes and devices: None. Lungs and pleura: Lungs are clear. No pleural effusions or pneumothorax. Mediastinum: Mediastinal contours are normal. Heart size is normal. Bones and chest wall: No suspicious bony abnormalities. Soft tissues appear unremarkable. IMPRESSION: No acute pulmonary process. Dictated by: Jodie Jim M.D. on 08/07/2024 at 10:43 Approved by: Jodie Jim M.D. on 08/07/2024 at 10:43
== END ==
PROVIDERS: PCP Family Medicine; Referring Provider Student in an Organized Health Care Education/Training Program; Visit Provider Student in an Organized Health Care Education/Training Program
DX: R05.8 Other specified cough (principal); R53.83 Other fatigue
CPT/HCPCS: 71046; 87070

== ENCOUNTER → 2025-03-18 07:41 | Outpatient (CLI) | payer BC, SELFPAY ==
[2025-03-18 08:25] LABS: Alanine Aminotransferase 20 IU/L (<35); Albumin 4.3 g/dL (3.5-5.0); Albumin Globulin Ratio 1.5 (1.0-2.8); Alkaline Phosphatase 81 U/L (38-126); Blood Urea Nitrogen 17 mg/dL (7-17); Calcium 9.5 mg/dL (8.4-10.2); Carbon Dioxide 28 mmol/L (22-32); Chloride 103 mmol/L (98-107); Cholesterol 188 mg/dL (140-199); Estimated Glomerular Filt Rate > 60 mL/min (>60); Globulin 2.8 g/dL (1.7-4.1); Glucose 112 mg/dL (70-99); HDL Cholesterol 60 mg/dL (40-60); HEMOLYSIS < 15 (0-50); Potassium 4.3 mmol/L (3.4-5.1); Sodium 138 mmol/L (137-145); Total Protein 7.1 g/dL (6.3-8.2); Triglycerides 205 mg/dL (35-150)
[2025-03-18 08:33] LABS: Hemoglobin A1C% w Est Avg Glu 5.3 % (4.0-6.0)
[2025-03-18 09:11] LABS: Hep C Virus Ab w/Reflex Quant NEGATIVE s/c (NEGATIVE)
== END ==
PROVIDERS: PCP Family Medicine; Referring Provider Family Medicine; Visit Provider Family Medicine
DX: I10 Essential (primary) hypertension (principal); E78.5 Hyperlipidemia, unspecified; R73.01 Impaired fasting glucose
CPT/HCPCS: 36415; 80053; 80061; 83036; 86803

== ENCOUNTER → 2025-04-08 08:12 | Outpatient (CLI) | payer BC, SELFPAY ==
--- NOTE | 2025-04-08 08:17 | DI.CT.S_ITS ---
PROCEDURE: CT CHEST WO CON INDICATIONS: screening. monitor aneurysm TECHNIQUE: Noncontrast 5 mm thick sections acquired from the pulmonary apices to the posterior costophrenic angles. 1 mm lung window, 5 mm thick coronal and sagittal and 7 mm axial MIP reformats were then acquired. For radiation dose reduction, the following was used: automated exposure control, adjustment of mA and/or kV according to patient size. COMPARISON: [facility], CT, CT LUNG LOW DOSE SCREENING, 03/11/2024, 7:27. FINDINGS: Image quality: Diagnostic. Lower Neck: No enlarged lymph nodes. Thyroid: No thyroid nodules which require sonographic follow up, per consensus guidelines. Axillae: No enlarged lymph nodes. Chest Wall: Unremarkable. Bones: Unremarkable. Lungs and Pleura: No pneumothorax or pleural effusions. No consolidation or suspicious nodules. Heart: Extensive coronary artery calcifications. No pericardial effusion. Thoracic Vessels: Stable size of the ascending aorta measuring 4.55 cm. Extensive calcified plaque. No new saccular aneurysms. Mediastinum and Riya: No enlarged lymph nodes. Esophagus: No wall thickening. No hiatal hernia. Upper Abdomen: Visualized upper abdomen solid organs and bowel loops appear normal. IMPRESSION: 1. No significant focal lung parenchymal lesion seen. 2. Essentially stable appearance of ascending aortic aneurysm measuring 4.55 cm. Dictated by: Malcolm Kumar M.D. on 04/08/2025 at 18:19 Approved by: Malcolm Kumar M.D. on 04/08/2025 at 18:25
== END ==
PROVIDERS: PCP Family Medicine; Referring Provider Family Medicine; Visit Provider Family Medicine
DX: Z12.2 Encounter for screening for malignant neoplasm of respiratory organs (principal); I71.21 Aneurysm of the ascending aorta, without rupture
CPT/HCPCS: 71250